=== PATIENT | male | born 1945 | race Hispanic/Latino ===

== ENCOUNTER 2019-01-19 16:19 | Inpatient (IN) | payer MEDICARE ==
[2019-01-19] MEDS ORDERED: Ondansetron PF 4 MG/2 ML Vial ONE (16:43)
[2019-01-19 17:02] LABS: #Lymphocytes 0.5 thou/uL (1.20-3.40); #Monocytes 0.4 thou/uL (0.11-0.59); #Neutrophils 7.5 thou/uL (1.40-6.50); %Lymphocytes 6.4 % (21.0-51.0); %Neutrophils 88.5 % (42.0-75.0); Hemoglobin 13.7 g/dL (14.0-18.0); Mean Corpuscular HGB CONC 34.9 g/dL (32.0-36.0); Mean Corpuscular Hemoglobin 30.5 pg (27.0-31.0); Mean Corpuscular Volume 87.4 fL (78.0-98.0); Mean Platelet Volume 9.8 fL (7.4-10.4); Platelet Count 141 thou/uL (130-400); RBC Distribution Width 12.8 % (11.5-14.5); Red Blood Cell (RBC) Count 4.49 mill/uL (4.70-6.10); White Blood Cell (WBC) Count 8.5 thou/uL (4.8-10.8)
[2019-01-19 17:24] LABS: ALT (SGPT) 18 U/L (8-55); AST (SGOT) 14 U/L (5-34); Albumin 3.8 g/dL (3.4-4.8); Alkaline Phosphatase 77 U/L (40-150); Anion Gap 15 mmol/L (10-20); BUN (Urea Nitrogen) 41 mg/dL (8.4-25.7); Calc. Creatinine Clearance 0 mL/min (70-130); Calcium 8.8 mg/dL (7.8-10.44); Carbon Dioxide 20 mmol/L (23-31); Chloride 103 mmol/L (98-107); Estimated GFR-MDRD 22; Globulin 3.1 g/dL (2.4-3.5); Glucose 244 mg/dL (83-110); Lipase Less than 4 U/L (8-78); Potassium 3.8 mmol/L (3.5-5.1); Protein, Total 6.9 g/dL (5.8-8.1); Sodium 134 mmol/L (136-145)
--- NOTE | 2019-01-19 18:13 | RAD ---
7PORTABLE CHEST: History: Central line placement. FINDINGS: Heart size appears borderline in size considering portable technique and suboptimal inspiration. Left subclavian line is present, the catheter tip overlies the superior vena cava. No signs of pneumothor ax. IMPRESSION: Placement of a left subclavian line. No signs of pneumothorax. POS: [facility]
[2019-01-19] MEDS ORDERED: metroNIDAZOLE 500 MG/100 ML BAG ONE (18:38)
[2019-01-19] MEDS ORDERED: Norepinephrine 8 MG/250 ML BAG IVPB PRN (18:41)
[2019-01-19] MEDS ORDERED: Norepinephrine 8 MG in Dextrose 5% in Water 242 ML IVPB PRN ×2 (18:45→22:20)
--- NOTE | 2019-01-19 19:53 | CT ---
CT ABDOMEN AND PELVIS PERFORMED WITHOUT CONTRAST ENHANCEMENT: History: Abdominal pain, nausea, vomiting. No IV contrast was administered due to low GFR. Comparison: None. FINDINGS: The lung bases are clear of any infiltrative process. There are subsegmental atelectatic changes pres ent. The liver, spleen, pancreas and gallbladder regions appear unremarkable given the limitations of a no ncontrast study. Right and left adrenal glands are normal in appearance. Right and left kidneys are not obstructed. No renal calculi. No significant periaortic or mesenteric adenopathy. There is fluid throughout the col on. No signs of obstruction. Findings would indicate a diarrheal state. CT OF PELVIS PERFORMED WITHOUT CONTRAST ENHANCEMENT: The appendix is normal. No adenopathy, mass, or free fluid. Vascular calcifications are seen. IMPRESSION: Fluid throughout the colon suggesting diarrhea. No signs of any colon wall thickening or other findin gs. POS: [facility]
--- NOTE | 2019-01-19 20:15 | PDOC.FPRHP ---
- History of Present Illness Chief Complaint: n/v History of Present Illness: 73yo male with h/o CAD s/p [place] in 2014, IDDMII, HLD, HTN who presents for n/v and diarrhea as well as feeling of "getting very cold." History obtained via translating service via pt and son (Vic). Sxs began last night on trip back from [place], has previous been living in [place] for psat year. Reports 5-6 episodes of non-bloody diarrhea as well as non-bloody, non-billious vomiting x4. Endorses mild nausea and decreased appetite and PO intake. Denies any SOB, cough, congestion, rashes, sores, urinary sxs, or pain of any kind. Nothing seemed to make sx's worse. Reports drinking "serum" which helped some with sx's. Reports being just fine a few days prior with no recent illnesses. Pt denies any known kidney problems and does not know baseline Cr. ED Course: Initially had elevated fever of 100.8 and RR 24. SBP 90s, dropped to 70s, responded initially to 3L ns bolus but dropped back into 70s. Left subclavian central line placed and started on levophed rate of 2cc/hr with stabilization of SBP at 100. Pt was given dose of levofloxicin and flagyl. - Allergies/Adverse Reactions Allergies Allergy/AdvReac Type Severity Reaction Status Date / Time No Known Allergies Allergy Verified 01/19/19 20:23 - Home Medications Medication Instructions Recorded Confirmed Type Atorvastatin Calcium [Lipitor] 20 mg PO DAILY 01/19/19 01/19/19 History Insulin NPH Human Isophane 18 unit SC QPM 01/19/19 01/19/19 History [NovoLIN N] Insulin NPH Human Isophane 20 unit SC QAM 01/19/19 01/19/19 History [NovoLIN N] Losartan Potassium 50 mg PO BID 01/19/19 01/19/19 History Metoprolol Succinate [Toprol XL] 100 mg PO DAILY 01/19/19 01/19/19 History Omeprazole Magnesium 20 mg PO DAILY 01/19/19 01/19/19 History - History PMHx: CAD s/p [place] in 2014 - no stents placed, IDDMII, HLD, HTN PSHx: 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 Social drinker but quit 30 years ago. No illicits. - Review of Systems General: reports: fever/chills, weight/appetite/sleep changes (decreased PO intake and appetite). denies: night sweats, fatigue Eyes: denies: eye pain, vision changes ENT: denies: nasal congestion, rhinorrhea Respiratory: denies: cough, congestion, shortness of breath Cardiovascular: denies: chest pain, palpitation, edema Gastrointestinal: reports: nausea, vomiting, diarrhea. denies: constipation, abdominal pain, GI bleeding Genitourinary: denies: incontinence, dysuria, polyuria Skin: denies: rashes, lesions Musculoskeletal: denies: pain, tenderness, arthritis/arthralgias Neurological: reports: weakness. denies: numbness, seizure Psychological: denies: anxiety, depression - Vital signs BP: 120/64 HR: 90 RR: 18 Tmax: 99.4 Pox: 96% on 2L Wt: 84kg - Physical Exam Constitutional: NAD, awake, alert and oriented, well developed HEENT: normocephalic and atraumatic, PERRLA, EOMI, conjunctiva clear, MMM Neck: supple, trachea midline Chest: no-tender to palpation Heart: RRR, normal S1/S2, no murmurs/rubs/gallops, pulses present (cold LE, no open sores, 2+ pulses BL), no edema Lungs: no respiratory distress, good air movement, no rales/rhonchi, other ( crackles BL lower lung rich) Abdomen: soft, non-tender, bowel sounds present, no masses/distention, other ( [place], McBurneys, and Psoas negative) Musculoskeletal: normal structure, other (5/5 strength throughout) Neurological: no focal deficit, normal sensation Skin: no rash/lesions Heme/Lymphatic: no unusual bruising or bleeding FMR H&P: Results - Labs Result Diagrams: 01/19/19 16:46 01/19/19 16:46 Lab results: WBC 8.5 thou/uL (4.8-10.8) 01/19/19 16:46 Hgb 13.7 g/dL (14.0-18.0) L 01/19/19 16:46 Hct 39.2 % (42.0-52.0) L 01/19/19 16:46 MCV 87.4 fL (78.0-98.0) 01/19/19 16:46 Plt Count 141 thou/uL (130-400) 01/19/19 16:46 Neutrophils % 88.5 % (42.0-75.0) H 01/19/19 16:46 Sodium 134 mmol/L (136-145) L 01/19/19 16:46 Potassium 3.8 mmol/L (3.5-5.1) 01/19/19 16:46 Chloride 103 mmol/L (98-107) 01/19/19 16:46 Carbon Dioxide 20 mmol/L (23-31) L 01/19/19 16:46 BUN 41 mg/dL (8.4-25.7) H 01/19/19 16:46 Creatinine 2.81 mg/dL (0.7-1.3) H 01/19/19 16:46 Glucose 244 mg/dL (83-110) H 01/19/19 16:46 Lactic Acid 2.6 mmol/L (0.5-2.2) H 01/19/19 17:01 Calcium 8.8 mg/dL (7.8-10.44) 01/19/19 16:46 Total Bilirubin 2.0 mg/dL (0.2-1.2) H 01/19/19 16:46 AST 14 U/L (5-34) 01/19/19 16:46 ALT 18 U/L (8-55) 01/19/19 16:46 Alkaline Phosphatase 77 U/L (40-150) 01/19/19 16:46 Creatine Kinase 63 U/L (30-200) 01/19/19 16:46 Serum Total Protein 6.9 g/dL (5.8-8.1) 01/19/19 16:46 Albumin 3.8 g/dL (3.4-4.8) 01/19/19 16:46 Lipase Less than 4 U/L (8-78) L 01/19/19 16:46 - Radiology Interpretation Chest x-ray Status: image reviewed by me, report reviewed by me (Poor quality XR, left subclavian in place. Possible BL pleural effusions, loss of costdiagphragmatic recesses) CT scan - abdomen Status: report reviewed by me (Fluid in colon suggestive of diarrhea, no colon wall thickening, no acute process) FMR H&P: A/P - Problem List (1) Septic shock Current Visit: Yes Status: Acute Code(s): A41.9 - SEPSIS, UNSPECIFIED ORGANISM; R65.21 - SEVERE SEPSIS WITH SEPTIC SHOCK (2) Elevated creatine kinase Current Visit: Yes Status: Acute (3) CAD (coronary artery disease) Current Visit: Yes Status: Acute Code(s): I25.10 - ATHSCL HEART DISEASE OF [place] CORONARY ARTERY W/O ANG PCTRS (4) Lactic acid acidosis Current Visit: Yes Status: Acute Code(s): E87.2 - ACIDOSIS (5) Insulin dependent diabetes mellitus Current Visit: Yes Status: Acute Code(s): E11.9 - TYPE 2 DIABETES MELLITUS WITHOUT COMPLICATIONS; Z79.4 - REMANUFACTURING TECHNICIAN (CURRENT) USE OF INSULIN - Plan 73yo male with h/o CAD s/p TX in 2014, IDDMII, HLD, HTN who presents for n/v and diarrhea found to be in septic shock. #Septic shock 2/2 unknown source - Initial temp to 100.8, tachypnia, hypotensive requiring levophed - admit to CCU, continue pressor support and IVF of LR @ 125cc/hr - Will obtain UA and UCx, BCx pending - Given levoquin and flagy in ED, will switch to Vanc and Zosyn - Procal pending - Stool studies ordered - repeat CXR 2v in AM 2/2 poor study - RUQ US in AM #Hyperbili - PE WNL, negative osorio's sign, no elevated liver enzymes other than bili - RUQ US pending # ARABELLA vs CKD - Cr 2.81, unknown baseline - IVF of LR @ 125cc/hr - Will trend - checking Mg and Phos, will replace per protocol if needed # Lactic Acidosis - likely 2/2 #1, will trend per sepsis # h/o CAD s/p [place] in 2014 - BNP pending, crackles on lung exam, no lower ext edema - repeat CXR in AM - monitor fluid status, consider ECHO in AM #IDDMII - on NPH 20u QPM and 18uQAM, will hold - mild SS insulin, ACHS accuchecks, hyperglycemia protocol, will monitor - will check A1C # HTN - hold home BP meds at this time #HLD - continue home lipitor - will check Lipid panel VTE: Lovenox renally dosed Diet: Clears to adv as conner Code: Full Disposition/LOS: Admit to CCU for pressor support, sepsis workup pending, monitor clinical status. Anticipate hospitalization 3-5 days. FMR H&P: Upper Level - Pertinent history I was present with the internet technology manager when he obtained the above HPI. I scribed the above document. I made edits as I saw were needed. Agree with above. - Pertinent findings Pt appears to be somewhat weak and ill. Pt extremities cool to the touch. Lungs: Crackles noted bilaterally. Somewhat difficult to auscultate Abdomen: NTTP, no masses or hernias. Osorio and Mcburney's negative. Psoas sign negative. - Plan Date/Time: 01/19/192012 I, Carroll Hanson PGY-3, have evaluated this patient and agree with findings/plan as outlined by internet technology manager resident. Pertinent changes/additions are listed here. Pt having 2 day history of N/V/D and chills. Came in and was found to have RR of 24 and fever of 100.8. Pt BP down in 70's after 3L bolus. Will admit for Septic Shock 2/2 Unknown Source (suspect GI). Pt on levophed at rate of 1. Will continue to titrate as needed. Will start broad spectrum abx, Vanc and Zosyn. Will obtain blood and urine cx. Awaiting UA. Bili elevated. WIll get RUQ sono. Will get stool studies. Will start on LR@125. Cr elevated with unknown baseline. Will trend with BMP. Will renally dose medications. Glucose elevated with no hx of diabetes. Will check A1c. Agree with plan above. Addendum - Attending - Attending Attestation Date/Time: 01/20/19 0021 I personally evaluated the patient and discussed the management with Dr. Luis Armando Massey on 01/19/2019 I agree with the History, Examination, Assessment and Plan documented above with any addition or exceptions noted below - 73yo male with h/o CAD, h /o TX in 2014, Type 2 DM, HLD, HTN who presents for n/v and diarrhea Sxs began last night on trip back from [place], has previous been living in [place] for psat year. Reports 5-6 episodes of non-bloody diarrhea as well as non-bloody, non-billious vomiting x4. Reports feeling cold, having chills and decreased appetite and PO intake. Denies any SOB, cough, congestion, rashes, sores, urinary sxs, or pain of any kind. PMH/PSH/Meds/SH reviewed and agree with resident's documentation. T 100.7 P102 BP 98/72 Exam repeated by me and agree with resident's findings. Labs: WBC=8.5, H/H=13./739.2, Cal=664, Yp=653, K=3.8, Xr=182, CO2=20, BUN/Cr=41/2.81, Laen=529, t bili=2.0, AST/ALT=14/18, lactic acid =2.6 -> 2.1. CT abd/pelvis- fluid throughout colon suggesting diarrhea; no masses or adenopathy. A/P: 1) Septic shock secondary to infectious diarrhea - received 3 L NS in ER and started on levophed due to continued hypotension. Started on levaquin and flagyl in ER. Continue abx. Blood cultures drawn but will also send stool studies, U/A and culture. 2) ARABELLA versus CKD- no h/o kidney disease per patient suspect ARABELLA secondary to GI losses/dehydration- continue IVF and recheck in AM. 3) Type 2 DM- hold home insulin and use sliding scale for now. 4) HTN- hold home meds; resume when BP stabilizes if needed.
[2019-01-19 20:59] LABS: Lactic Acid 2.1 mmol/L (0.5-2.2)
[2019-01-19] MEDS ORDERED: Ondansetron PF 4 MG/2 ML Vial IVP PRN (22:10)
[2019-01-19] MEDS ORDERED: Dextrose 5% in Water 1,000 ML IV PRN (22:10)
[2019-01-19] MEDS ORDERED: Acetaminophen 650 MG Suppository PR PRN (22:10)
[2019-01-19] MEDS ORDERED: Norepinephrine 8 MG/0.9% NS 250 ML IVPB PRN (22:10)
[2019-01-19] MEDS ORDERED: CCU Electrolyte Replacement 1 EACH IVPB ONE (22:10)
[2019-01-19] MEDS ORDERED: Dextrose 50% Abboject 50 ML SYRINGE SLOW IVP PRN (22:10)
[2019-01-19] MEDS ORDERED: Calcium Carbonate 500 MG ChewTAB PO PRN (22:10)
[2019-01-19] MEDS ORDERED: CCU ELECTROLYTE REPLACEMENT PROTOCOL FS PRN (22:18)
[2019-01-19] MEDS ORDERED: Potassium Chloride 40 MEQ in Premix Bag 1 BAG IVPB PRN (22:18)
[2019-01-19] MEDS ORDERED: Magnesium Oxide 400 MG TAB PO PRN ×2 (22:18)
[2019-01-19] MEDS ORDERED: Potassium Phosphate 15 MMOL in Sodium Chloride 0.9% 250 ML 250 ML IV PRN (22:18)
[2019-01-19] MEDS ORDERED: PHOS-NAK 1 PKT PACK PO PRN ×2 (22:18)
[2019-01-19] MEDS ORDERED: Potassium Chloride 20 MEQ TAB PO PRN (22:18)
[2019-01-19] MEDS ORDERED: Potassium Phosphate 9 MMOL in Sodium Chloride 0.9% 100 ML IVPB PRN (22:18)
[2019-01-19] MEDS ORDERED: Potassium Phosphate 12 MMOL in Sodium Chloride 0.9% 250 ML 250 ML IV PRN (22:18)
[2019-01-19] MEDS ORDERED: Potassium Chloride 40 MEQ in Sodium Chloride 0.9% 250 ML 250 ML IVPB PRN (22:18)
[2019-01-19] MEDS ORDERED: Magnesium 2 GM/50 ML 2 GM in Premix Bag 1 BAG IVPB PRN (22:18)
[2019-01-19] MEDS ORDERED: Enoxaparin Sodium 30 MG/0.3 ML SYRINGE SC SCH (22:30)
[2019-01-19] MEDS ORDERED: Piperacillin/Tazobactam 2.25 GM in Sodium Chloride 0.9% 100 ML IVPB SCH (22:30)
[2019-01-19 22:45] LABS: Hemoglobin A1c 7.6 % (4.0-6.0)
[2019-01-19 22:54] LABS: Phosphorus 2.9 mg/dL (2.3-4.7)
[2019-01-19 23:01] LABS: Troponin I 0.047 ng/mL (< 0.028)
[2019-01-19 23:14] LABS: Thyroid Stimulating Hormone 0.5999 uIU/mL (0.35-4.94)
[2019-01-19] MEDS: Lactated Ringer's 1,000 ML IV SCH (23:18)
[2019-01-19 23:52] LABS: Bilirubin Negative (Negative); Blood, Urine 1+ (Negative); Clarity Clear (Clear); Glucose, Urine (Dipstick) 70 mg/dL (Negative); Leukocyte Negative Leu/uL (Negative); Nitrite Negative (Negative); Protein, Urine (Dipstick) 100 mg/dL (Neg-Trace); Squamous Epithelial 0-3 HPF (0-3); Urobilinogen Normal mg/dL (Less than 2); WBC/HPF 0-3 HPF (0-3)
[2019-01-19 23:54] LABS: Bacteria/HPF 1+ HPF (None Seen)
[2019-01-20] MEDS: Acetaminophen 325 MG/10.15 ML UDCUP PO PRN ×2 (00:04→06:15)
[2019-01-20 02:03] LABS: Troponin I 0.046 ng/mL (< 0.028)
[2019-01-20 04:24] LABS: ALT (SGPT) 19 U/L (8-55); AST (SGOT) 19 U/L (5-34); Albumin 3.2 g/dL (3.4-4.8); Alkaline Phosphatase 58 U/L (40-150); Anion Gap 14 mmol/L (10-20); BUN (Urea Nitrogen) 37 mg/dL (8.4-25.7); Bilirubin, Total 1.5 mg/dL (0.2-1.2); Calc. Creatinine Clearance 44 mL/min (70-130); Calcium 7.6 mg/dL (7.8-10.44); Carbon Dioxide 17 mmol/L (23-31); Cardiac Risk 3.2 (Less than 4.5); Chloride 110 mmol/L (98-107); Cholesterol 71 mg/dl (< 200 Desired); Estimated GFR-MDRD 35; Globulin 2.7 g/dL (2.4-3.5); Glucose 157 mg/dL (83-110); HDL Cholesterol 22 mg/dL (>60 Neg Risk); LDL Cholesterol, Calculated 27 mg/dL; Protein, Total 5.9 g/dL (5.8-8.1); Sodium 138 mmol/L (136-145); Triglycerides 108 mg/dL (Less than 150)
[2019-01-20] MEDS ORDERED: Piperacillin/Tazobactam 2.25 GM in Sodium Chloride 0.9% 100 ML IVPB SCH (06:00)
[2019-01-20] MEDS ORDERED: metroNIDAZOLE 500 MG in Premix Bag 1 BAG IVPB SCH (06:00)
[2019-01-20 06:05] LABS: Band 39 % (5-11); Hemoglobin 12.4 g/dL (14.0-18.0); Lymphocytes 9 % (21-51); MDiff Complete? YES; Mean Corpuscular HGB CONC 35.3 g/dL (32.0-36.0); Mean Corpuscular Hemoglobin 30.6 pg (27.0-31.0); Mean Corpuscular Volume 86.8 fL (78.0-98.0); Mean Platelet Volume 10.3 fL (7.4-10.4); Monocytes 7 % (0-10); Neutrophil 45 % (42-75); Platelet Count 92 thou/uL (130-400); Platelet Morphology Comment Appears Decreased; RBC Distribution Width 12.6 % (11.5-14.5); Red Blood Cell (RBC) Count 4.04 mill/uL (4.70-6.10); White Blood Cell (WBC) Count 5.2 thou/uL (4.8-10.8)
[2019-01-20] MEDS ORDERED: Prevnar 13-Val Conj/PF 0.5 ML SYRINGE IM ONE (09:00)
[2019-01-20] MEDS: Lactated Ringer's 1,000 ML IV SCH ×3 (09:31→21:40)
[2019-01-20] MEDS: Loperamide HCl 2 MG CAP PO PRN ×5 (09:40→17:24)
[2019-01-20] MEDS: Atorvastatin Calcium 20 MG TAB PO SCH (09:40)
--- NOTE | 2019-01-20 11:05 | ULT ---
RIGHT UPPER QUADRANT ULTRASOUND: INDICATIONS: Abdominal pain. FINDINGS: The gallbladder is not visualized for comment. There is no focal hepatic lesion. There is limited v isualization of the right upper quadrant due to patient body habitus with decreasing acoustic penetra tion. Osorio sign is reported as negative by the street cleaner. Imaged common duct is within normal l imits in size. IMPRESSION: Technically limited examination. Nonvisualization of the gallbladder. There remains extensive shado wing of this region. The street cleaner does report a negative Osorio sign. Correlate clinically. POS: [facility]
--- NOTE | 2019-01-20 11:27 | RAD ---
PORTABLE CHEST: Date: 01/20/19 HISTORY: Crackles on exam, bilateral pleural effusions. COMPARISON: 01/19/19. FINDINGS: Heart size appears slightly enlarged. Left-sided subclavian line is again noted. The lungs are clear of any infiltrative process. No definite signs of effusions. IMPRESSION: Mild cardiomegaly. No acute infiltrative process. Suggestion of perhaps some minimal subsegmental ate lectasis in the lung bases. Film is of less than optimal inspiration. POS: [facility]
[2019-01-20] MEDS ORDERED: Potassium Chloride 20 MEQ TAB PO SCH (11:30)
--- NOTE | 2019-01-20 11:56 | CON ---
DATE OF CONSULTATION: HISTORY OF PRESENT ILLNESS: Marcos Eastman is a 73-year-old gentleman, who speaks no Swedish. His son is at the bedside, who translated. His Swedish is also relatively poor, but it appears he presented with 24 to 48 hours of nausea, vomiting, and profuse diarrhea following a trip to [place]. There is no blood in the stool. He was when he came in, though his blood pressure is 86/49, pulse 92, his saturations are 96% on room air, and respirations 18. He was given some IV fluid hydration to which he is feeling better. His blood pressure is 106/47, though he is still having some stools. PAST MEDICAL HISTORY: Pertinent for diabetes, hyperlipidemia, hypertension, and coronary artery disease. PAST SURGICAL HISTORY: None. SOCIAL HISTORY: Smoker one time. No substance abuse. HOME MEDICATIONS: Include; 1. Insulin 20 units in the morning, 80 units at nighttime. 2. Omeprazole 20. 3. Metoprolol XL 100. 4. Losartan 50. 5. Lipitor 20. ALLERGIES: NONE. FAMILY HISTORY: Unremarkable. REVIEW OF SYSTEMS: Ten-point negative. PHYSICAL EXAMINATION: VITAL SIGNS: His saturations are 100% on room air, pulse 92, respirations 18, and blood pressure 100/60. GENERAL: He is in no distress. CHEST: No wheezing or crackles. CARDIAC: Normal S1 and S2. No gallops. ABDOMEN: No masses. LABORATORY DATA: White count 5000, H and H of 12 and 35, and platelet count is 92,000, yesterday it was 141,000. LABORATORY DATA: Creatinine 1.8, yesterday it was 2.8. Hemoglobin A1c 7.6. Lactic acid is normal. BNP is normal. stool and blood cultures are negative. IMPRESSION: 1. Gastroenteritis, etiology unclear. 2. Hypertension, dehydration. 3. Azotemia. 4. Diabetes. PLAN: I agree with aggressive hydration. Concern about his thrombocytopenia as possibly this could be septic. Serial exam. We will follow while in the ICU. Consultation note, 70 minutes, 50% direct patient care. Job ID: [id number]
--- NOTE | 2019-01-20 12:52 | PDOC.FM ---
- Subjective Subjective: Pt reports feeling improved, continued nausea, no vomiting. No new complaints since admission. Reports he is hungry. - Objective Vital Signs & Weight: Vital Signs (12 hours) Temp Pulse Pulse BP BP Pulse Ox Pulse Ox 01/20/19 11:15 95 94 112/51 L 118/60 98 01/20/19 11:00 98.1 F 01/20/19 07:46 100 01/20/19 07:37 98 01/20/19 07:00 98.3 F 01/20/19 06:00 101.3 F H 01/20/19 02:00 100.4 F H Pulse Ox 01/20/19 11:15 99 01/20/19 11:00 01/20/19 07:46 01/20/19 07:37 01/20/19 07:00 01/20/19 06:00 01/20/19 02:00 Weight Weight 90.9 kg Most Recent Monitor Data Heart Rate from ECG 98 NIBP 112/51 NIBP BP-Mean 71 Respiration from ECG 15 SpO2 100 I&O: 01/19/19 01/20/19 01/21/19 06:59 06:59 06:59 Intake Total 1368.9 90 Output Total 1300 700 Balance 68.9 -610 Result Diagrams: 01/20/19 03:30 01/20/19 03:30 Phys Exam - Physical Examination Constitutional: NAD HEENT: moist MMs, sclera anicteric Neck: no nodes, supple Respiratory: no wheezing, clear to auscultation bilateral Cardiovascular: RRR, no significant murmur Gastrointestinal: soft, non-tender, no distention, positive bowel sounds Musculoskeletal: no edema, pulses present Neurological: normal sensation, moves all 4 limbs Psychiatric: normal affect Skin: no rash, normal turgor Dx/Plan (1) Septic shock Code(s): A41.9 - SEPSIS, UNSPECIFIED ORGANISM; R65.21 - SEVERE SEPSIS WITH SEPTIC SHOCK Status: Acute (2) Viral gastroenteritis Code(s): A08.4 - VIRAL INTESTINAL INFECTION, UNSPECIFIED Status: Acute (3) CAD (coronary artery disease) Code(s): I25.10 - ATHSCL HEART DISEASE OF [place] CORONARY ARTERY W/O ANG PCTRS Status: Acute (4) Elevated creatine kinase Status: Acute (5) Insulin dependent diabetes mellitus Code(s): E11.9 - TYPE 2 DIABETES MELLITUS WITHOUT COMPLICATIONS; Z79.4 - FDC (CURRENT) USE OF INSULIN Status: Acute (6) Lactic acid acidosis Code(s): E87.2 - ACIDOSIS Status: Acute - Plan Plan: Septic shock 2/2 viral gastroenteritis A- pt feels improved with ABX, stool studies are all negative except fecal lactoferrin. pt is s/p receiving doses of levaquin, zosyn, and flagyl P- will continue zosyn alone -f/u BCx and UCx - repeat CXR 2v in AM 2/ poor study is pending -LR at 125ml/hr -pt has been weaned from levophed, he is stable -transfer to telemetry Hyperbili A- PE WNL, negative gerber's sign, no elevated liver enzymes other than bili P- RUQ US pending ARABELLA vs CKD A- Cr 2.81, unknown baseline P- IVF of LR @ 125cc/hr - Will trend Lactic Acidosis - likely 2/2 #1, will trend per sepsis h/o CAD s/p [place] in 2014 A- BNP elevated crackles on lung exam, no lower ext edema P- repeat CXR in AM - monitor fluid status, ECHO today IDDMII - on NPH 20u QPM and 18uQAM, will hold untill tolerating better PO intake - mild SS insulin, ACHS accuchecks, hyperglycemia protocol, will monitor HTN - hold home BP meds at this time HLD - continue home lipitor - will check Lipid panel hypomagnesemia -replace and monitor as needed hypokalemia -replace and monitor as needed VTE: Lovenox renally dosed Code: Full Addendum - Attending - Attending Attestation Date/Time: 01/20/192041 I personally evaluated the patient and discussed the management with Dr. Lugo at 10 am I agree with the History, Examination, Assessment and Plan documented above with any addition or exceptions noted below. Septic shock from gastroenteritis- off levophed and bp stable. ok to transfer to tele Dehydration- s/p IVF resuscitation- continue IVF Blood cx 2/2 positive for gram neg rods- on zosyn. Continue Thrombocytopenia- possible secondary to sepsis- trend ARABELLA- improving- continue to trend hypokalemia- replace mild metabolic acidosis- IVF and trend. Elevated bnp- check ECHO- monitor fluid status. No hx of CHF.
[2019-01-20] MEDS: Piperacillin/Tazobactam 2.25 GM in Sodium Chloride 0.9% 100 ML IVPB SCH ×2 (13:44→21:40)
[2019-01-20] MEDS: HumaLOG 300 UNITS/3 ML VIAL SC PRN ×2 (17:24→21:40)
[2019-01-20] MEDS ORDERED: Enoxaparin Sodium 30 MG/0.3 ML SYRINGE SC SCH (21:00)
[2019-01-20] MEDS ORDERED: Vancomycin HCl 1.25 GM in Sodium Chloride 0.9% 250 ML 300 ML IVPB SCH (22:00)
[2019-01-21] MEDS: Loperamide HCl 2 MG CAP PO PRN ×4 (01:36→11:48)
[2019-01-21 05:24] LABS: Band 62 % (5-11); Eosinophils 1 % (0-10); Hemoglobin 10.9 g/dL (14.0-18.0); Lymphocytes 9 % (21-51); MDiff Complete? YES; Mean Corpuscular HGB CONC 35.1 g/dL (32.0-36.0); Mean Corpuscular Hemoglobin 30.9 pg (27.0-31.0); Mean Corpuscular Volume 88.1 fL (78.0-98.0); Mean Platelet Volume 10.5 fL (7.4-10.4); Monocytes 5 % (0-10); Neutrophil 21 % (42-75); Platelet Count 91 thou/uL (130-400); Platelet Morphology Comment Appears Decreased; RBC Distribution Width 12.6 % (11.5-14.5); Reactive Lymphocytes 1 % (0-10); Red Blood Cell (RBC) Count 3.54 mill/uL (4.70-6.10); White Blood Cell (WBC) Count 4.5 thou/uL (4.8-10.8)
[2019-01-21] MEDS: Piperacillin/Tazobactam 2.25 GM in Sodium Chloride 0.9% 100 ML IVPB SCH ×3 (05:41→21:49)
[2019-01-21] MEDS: Lactated Ringer's 1,000 ML IV SCH ×4 (05:43→23:36)
[2019-01-21 05:51] LABS: ALT (SGPT) 29 U/L (8-55); AST (SGOT) 39 U/L (5-34); Albumin 2.9 g/dL (3.4-4.8); Alkaline Phosphatase 50 U/L (40-150); Anion Gap 12 mmol/L (10-20); BUN (Urea Nitrogen) 30 mg/dL (8.4-25.7); Bilirubin, Total 1.2 mg/dL (0.2-1.2); Calc. Creatinine Clearance 50 mL/min (70-130); Calcium 7.9 mg/dL (7.8-10.44); Carbon Dioxide 19 mmol/L (23-31); Chloride 112 mmol/L (98-107); Estimated GFR-MDRD 41; Globulin 2.7 g/dL (2.4-3.5); Glucose 134 mg/dL (83-110); Magnesium 1.7 mg/dL (1.6-2.6); Potassium 3.3 mmol/L (3.5-5.1); Protein, Total 5.6 g/dL (5.8-8.1); Sodium 140 mmol/L (136-145)
--- NOTE | 2019-01-21 06:37 | PDOC.FM ---
- Subjective Subjective: reports some continued diarrhea overnight but no other issues or problems. No fever/chills, no nausea/vomiting - Objective Vital Signs & Weight: Vital Signs (12 hours) Temp Pulse Ox 01/21/19 04:00 98.4 F 01/21/19 00:00 98.6 F 01/20/19 19:24 100 01/20/19 19:00 97.3 F L 01/20/19 18:50 98 Weight Admit Weight 90.718 kg Weight 90.1 kg Most Recent Monitor Data Heart Rate from ECG 79 NIBP 134/65 NIBP BP-Mean 88 Respiration from ECG 19 SpO2 100 I&O: 01/19/19 01/20/19 01/21/19 06:59 06:59 06:59 Intake Total 1368.9 3214 Output Total 1300 2520 Balance 68.9 694 Result Diagrams: 01/21/19 04:05 01/21/19 04:05 Phys Exam - Physical Examination Constitutional: NAD HEENT: moist MMs, sclera anicteric Neck: no JVD, supple Respiratory: no wheezing, clear to auscultation bilateral Cardiovascular: RRR, no significant murmur Gastrointestinal: soft, non-tender, no distention, positive bowel sounds Musculoskeletal: pulses present Neurological: normal sensation, moves all 4 limbs Psychiatric: normal affect, A&O x 3 Skin: no rash, normal turgor Dx/Plan (1) Septic shock Code(s): A41.9 - SEPSIS, UNSPECIFIED ORGANISM; R65.21 - SEVERE SEPSIS WITH SEPTIC SHOCK Status: Acute (2) Viral gastroenteritis Code(s): A08.4 - VIRAL INTESTINAL INFECTION, UNSPECIFIED Status: Acute (3) CAD (coronary artery disease) Code(s): I25.10 - ATHSCL HEART DISEASE OF [place] CORONARY ARTERY W/O ANG PCTRS Status: Acute (4) Elevated creatine kinase Status: Acute (5) Insulin dependent diabetes mellitus Code(s): E11.9 - TYPE 2 DIABETES MELLITUS WITHOUT COMPLICATIONS; Z79.4 - GALLERY OR MUSEUM ATTENDANT (CURRENT) USE OF INSULIN Status: Acute (6) Lactic acid acidosis Code(s): E87.2 - ACIDOSIS Status: Acute - Plan Plan: Septic shock 2/2 viral gastroenteritis A- pt feels improved with ABX, stool studies are all negative except fecal lactoferrin. pt is s/p receiving doses of levaquin, zosyn, and flagyl. BCx show 2/2 gm negative rods- contaminate vs. bacteremia. repeat CXR was unremarkable P- will continue zosyn - f/u BCx speciation - LR at 125ml/hr - pt has been weaned from levophed, he is stable - transfer to telemetry Hyperbili, resolved A- PE WNL, negative gerber's sign, no elevated liver enzymes other than bili which is now wnl. was difficult study but did show negative gerber sign P- f/u outpt for repeat US ARABELLA vs CKD A- Cr 2.81 -> 2.6, unknown baseline P- IVF of LR @ 125cc/hr - Will trend h/o CAD s/p MD in 2014 A- BNP elevated crackles on lung exam, no lower ext edema P- monitor fluid status, ECHO today IDDMII - on NPH 20u QPM and 18uQAM, will hold until tolerating better PO intake - mild SS insulin, ACHS accuchecks, hyperglycemia protocol, will monitor HTN - hold home BP meds at this time HLD - continue home lipitor hypomagnesemia -replace and monitor as needed hypokalemia -replace and monitor as needed VTE: Lovenox renally dosed Code: Full Addendum - Attending - Attending Attestation Date/Time: 01/21/19 1720 I personally evaluated the patient and discussed the management with Dr. Lugo. I agree with the History, Examination, Assessment and Plan documented above with any addition or exceptions noted below. Septic shock from gastroenteritis-improving clinically. Bandemia worsened but afebrile. Continue IVF resuscitation. Gram negative bacteremia- awaiting speciation and sensitivities. Continue zosyn for now as afebrile and clinically improving ARABELLA, prerenal- improving. Continue daily trends. Ok to move to medical floor.
[2019-01-21] MEDS ORDERED: Potassium Chloride 20 MEQ TAB PO SCH (06:45)
--- NOTE | 2019-01-21 08:53 | PRG ---
DATE OF SERVICE: 01/21/2019 SUBJECTIVE: This morning, he is awake, alert, responsive, and less diarrhea, but still persistent. OBJECTIVE: VITAL SIGNS: Temperature 98, blood pressure 140/70, saturations 90%, respiratory rate 18. No pain. No discomfort. CHEST: No wheezing or crackles. CARDIAC: Normal S1 and S2. No gallops. ABDOMEN: No mass. LABORATORY DATA: Creatinine is 1.66, much improved. Lytes are normal. White count 10,000. Blood culture, gram-negative rods. IMPRESSION: 1. Gastroenteritis, etiology unclear. 2. Gram-negative sepsis. 3. Azotemia. 4. Diabetes. PLAN: Await cultures. Before we make any change to the antibiotics, he can be transferred to a monitored bed. Continue PT and supportive care. Job ID: [id number]
[2019-01-21] MEDS: Atorvastatin Calcium 20 MG TAB PO SCH (09:14)
[2019-01-21] MEDS: HumaLOG 300 UNITS/3 ML VIAL SC PRN (17:29)
[2019-01-22] MEDS: Lactated Ringer's 1,000 ML IV SCH (04:02)
[2019-01-22] MEDS: Piperacillin/Tazobactam 2.25 GM in Sodium Chloride 0.9% 100 ML IVPB SCH (05:45)
[2019-01-22 05:53] VITALS: BMI 30.2
[2019-01-22 07:07] LABS: ALT (SGPT) 30 U/L (8-55); AST (SGOT) 39 U/L (5-34); Albumin 2.7 g/dL (3.4-4.8); Alkaline Phosphatase 52 U/L (40-150); Anion Gap 9 mmol/L (10-20); BUN (Urea Nitrogen) 14 mg/dL (8.4-25.7); Bilirubin, Total 1.2 mg/dL (0.2-1.2); Calc. Creatinine Clearance 80 mL/min (70-130); Calcium 7.7 mg/dL (7.8-10.44); Carbon Dioxide 19 mmol/L (23-31); Chloride 111 mmol/L (98-107); Estimated GFR-MDRD 70; Globulin 2.4 g/dL (2.4-3.5); Glucose 131 mg/dL (83-110); Potassium 3.1 mmol/L (3.5-5.1); Protein, Total 5.1 g/dL (5.8-8.1); Sodium 136 mmol/L (136-145)
[2019-01-22 08:38] LABS: Band 22 % (5-11); Eosinophils 4 % (0-10); Hemoglobin 10.9 g/dL (14.0-18.0); Lymphocytes 19 % (21-51); MDiff Complete? YES; Mean Corpuscular HGB CONC 35.9 g/dL (32.0-36.0); Mean Corpuscular Volume 86.2 fL (78.0-98.0); Mean Platelet Volume 9.5 fL (7.4-10.4); Monocytes 9 % (0-10); Neutrophil 46 % (42-75); Platelet Count 93 thou/uL (130-400); Platelet Morphology Comment Appears Decreased; Polychromasia SLIGHT = 2-3 cells (100X) (0-2/hpf); RBC Distribution Width 12.2 % (11.5-14.5); Red Blood Cell (RBC) Count 3.52 mill/uL (4.70-6.10); White Blood Cell (WBC) Count 5.1 thou/uL (4.8-10.8)
[2019-01-22] MEDS: Atorvastatin Calcium 20 MG TAB PO SCH (08:40)
--- NOTE | 2019-01-22 09:20 | PDOC.FM ---
- Subjective Subjective: Pt reports feeling well overnight. 2BMs that were not diarrhea. no nausea/ vomiting. Denies fevers/chills - Objective Vital Signs & Weight: Vital Signs (12 hours) Temp Pulse Resp BP BP Pulse Ox 01/22/19 07:29 96.0 F L 80 16 155/72 H 95 01/22/19 04:54 98.6 F 74 20 139/69 95 01/21/19 23:32 98.6 F 67 20 130/69 92 L Weight Admit Weight 90.718 kg Weight 90.673 kg Most Recent Monitor Data Heart Rate from ECG 79 NIBP 155/78 NIBP BP-Mean 103 Respiration from ECG 15 SpO2 97 I&O: 01/21/19 01/22/19 01/23/19 06:59 06:59 06:59 Intake Total 3214 2540 Output Total 2520 200 Balance 694 2340 Result Diagrams: 01/22/19 06:15 01/22/19 06:15 Phys Exam - Physical Examination Constitutional: NAD HEENT: moist MMs, sclera anicteric Respiratory: no wheezing, clear to auscultation bilateral Cardiovascular: RRR, no significant murmur Gastrointestinal: soft, non-tender, positive bowel sounds Musculoskeletal: no edema, pulses present Neurological: normal sensation, moves all 4 limbs Psychiatric: normal affect Skin: no rash, normal turgor Dx/Plan (1) Septic shock Code(s): A41.9 - SEPSIS, UNSPECIFIED ORGANISM; R65.21 - SEVERE SEPSIS WITH SEPTIC SHOCK Status: Acute (2) Viral gastroenteritis Code(s): A08.4 - VIRAL INTESTINAL INFECTION, UNSPECIFIED Status: Acute (3) CAD (coronary artery disease) Code(s): I25.10 - ATHSCL HEART DISEASE OF [place] CORONARY ARTERY W/O ANG PCTRS Status: Acute (4) Elevated creatine kinase Status: Acute (5) Insulin dependent diabetes mellitus Code(s): E11.9 - TYPE 2 DIABETES MELLITUS WITHOUT COMPLICATIONS; Z79.4 - USP (CURRENT) USE OF INSULIN Status: Acute (6) Lactic acid acidosis Code(s): E87.2 - ACIDOSIS Status: Acute - Plan Plan: Septic shock 2/2 Salmonella group B bacteremia A- BCx showing 2/2 group B salmonella group B bacteremia. Stool Cx still unremarkable. Pt seems to be improved since starting ABX though and is stable. P- transition to PO bactrim -f/u on stool Cx -DC IVF and f/u on PO intake, possible DC today vs. tomorrow Hyperbili, resolved A- PE WNL, negative gerber's sign, no elevated liver enzymes other than bili which is now wnl. was difficult study but did show negative gerber sign P- f/u outpt for repeat US ARABELLA A- resolved. P- encourage PO intake h/o CAD s/p CT in 2014 A- BNP elevated crackles on lung exam, no lower ext edema P- monitor fluid status, ECHO today IDDMII - on NPH 20u QPM and 18uQAM, will hold until BG increases - mild SS insulin, ACHS accuchecks, hyperglycemia protocol, will monitor HTN - home meds HLD - continue home lipitor hypomagnesemia -replace and monitor as needed hypokalemia -replace and monitor as needed VTE: Lovenox renally dosed Code: Full Addendum - Attending - Attending Attestation Date/Time: 01/22/19 3289 I personally evaluated the patient and discussed the management with Dr. Lugo I agree with the History, Examination, Assessment and Plan documented above with any addition or exceptions noted below. Salmonella bacteremia and gastroenteritis- on IV Zosyn and improved significantly. Will touch base with Dr. Mohamud on length of treatment with either oral ampicillin or bactrim. D/c IVF and watch today. Expect d/c tomorrow if tolerates oral medication.
--- NOTE | 2019-01-22 09:36 | PRG ---
DATE OF SERVICE: 01/22/2019 SUBJECTIVE: Awake, alert, responsive. Better. Less diarrhea. Less short of breath. OBJECTIVE: VITAL SIGNS: Temperature 98.6, pulse 80, respiratory rate 16, saturations are 95% room air, blood pressure 150/72. CHEST: No wheezing, crackles. CARDIAC: Normal S1, S2. No gallops. ABDOMEN: No masses. ASSESSMENT: 1. Salmonella sepsis, sensitive to ampicillin. 2. Azotemia, resolved. 3. Diabetes. PLAN: I would switch him over to oral ampicillin. Home any time. Pulmonary will follow at a distance. Job ID: [id number]
[2019-01-22] MEDS ORDERED: Sulfameth/Trimethoprim DS 800-160mg TAB PO SCH (10:15)
[2019-01-22] MEDS ORDERED: Potassium Chloride 20 MEQ TAB PO SCH (14:30)
[2019-01-22] MEDS: Sulfameth/Trimethoprim DS 800-160mg TAB PO SCH (20:54)
[2019-01-22] MEDS: Losartan 25 MG TAB PO SCH (20:54)
[2019-01-23 05:54] LABS: ALT (SGPT) 33 U/L (8-55); AST (SGOT) 39 U/L (5-34); Albumin 2.8 g/dL (3.4-4.8); Alkaline Phosphatase 56 U/L (40-150); Anion Gap 10 mmol/L (10-20); BUN (Urea Nitrogen) 10 mg/dL (8.4-25.7); Calc. Creatinine Clearance 90 mL/min (70-130); Calcium 7.8 mg/dL (7.8-10.44); Carbon Dioxide 22 mmol/L (23-31); Chloride 108 mmol/L (98-107); Estimated GFR-MDRD 80; Globulin 2.5 g/dL (2.4-3.5); Glucose 177 mg/dL (83-110); Potassium 3.3 mmol/L (3.5-5.1); Protein, Total 5.3 g/dL (5.8-8.1); Sodium 137 mmol/L (136-145)
[2019-01-23 06:29] LABS: Mean Corpuscular HGB CONC 36.3 g/dL (32.0-36.0); Mean Corpuscular Hemoglobin 30.9 pg (27.0-31.0); Mean Platelet Volume 9.3 fL (7.4-10.4); Platelet Count 91 thou/uL (130-400); RBC Distribution Width 12.1 % (11.5-14.5); Red Blood Cell (RBC) Count 3.55 mill/uL (4.70-6.10); White Blood Cell (WBC) Count 6.7 thou/uL (4.8-10.8)
[2019-01-23 06:30] LABS: Band 5 % (5-11); Eosinophils 1 % (0-10); Lymphocytes 11 % (21-51); MDiff Complete? YES; Monocytes 10 % (0-10); Neutrophil 73 % (42-75)
--- NOTE | 2019-01-23 06:51 | PDOC.FM ---
- Subjective Subjective: Pt continues to feel well - Objective Vital Signs & Weight: Vital Signs (12 hours) Temp Pulse Resp BP Pulse Ox 01/22/19 20:00 98.0 F 80 18 150/74 H 93 L Weight Admit Weight 90.718 kg Weight 90.673 kg Most Recent Monitor Data Heart Rate from ECG 79 NIBP 155/78 NIBP BP-Mean 103 Respiration from ECG 15 SpO2 97 I&O: 01/21/19 01/22/19 01/23/19 06:59 06:59 06:59 Intake Total 3214 2540 300 Output Total 2520 200 Balance 694 2340 300 Result Diagrams: 01/23/19 05:14 01/23/19 05:14 Dx/Plan (1) Septic shock Code(s): A41.9 - SEPSIS, UNSPECIFIED ORGANISM; R65.21 - SEVERE SEPSIS WITH SEPTIC SHOCK Status: Acute (2) Viral gastroenteritis Code(s): A08.4 - VIRAL INTESTINAL INFECTION, UNSPECIFIED Status: Acute (3) CAD (coronary artery disease) Code(s): I25.10 - ATHSCL HEART DISEASE OF [place] CORONARY ARTERY W/O ANG PCTRS Status: Acute (4) Elevated creatine kinase Status: Acute (5) Insulin dependent diabetes mellitus Code(s): E11.9 - TYPE 2 DIABETES MELLITUS WITHOUT COMPLICATIONS; Z79.4 - HALFWAY (CURRENT) USE OF INSULIN Status: Acute (6) Lactic acid acidosis Code(s): E87.2 - ACIDOSIS Status: Acute - Plan Plan: Septic shock 2/2 Salmonella group B bacteremia and gastroenteritis A- BCx and Stool Cx showing 2/2 group B salmonella group B bacteremia. Pt seems to be improved since starting ABX though and is stable. Transitioned to PO bactrim yesterday per sensitivities and lit review P- continue PO bactrim -DC home today Hyperbili, resolved A- PE WNL, negative gerber's sign, no elevated liver enzymes other than bili which is now wnl. was difficult study but did show negative gerber sign P- f/u outpt for repeat US ARABELLA A- resolved. P- encourage PO intake h/o CAD s/p [place] in 2014 A- BNP elevated crackles on lung exam, no lower ext edema, echo shows EF 50-55% no note of HF P- monitor fluid status IDDMII - restart home NPH HTN - home meds HLD - continue home lipitor hypomagnesemia -replace and monitor as needed hypokalemia -replace and monitor as needed VTE: Lovenox renally dosed Code: Full Addendum - Attending - Attending Attestation Date/Time: 01/23/19 8251 I personally evaluated the patient and discussed the management with Dr. Lugo. I agree with the History, Examination, Assessment and Plan documented above with any addition or exceptions noted below. Patient overall doing well this morning. Denies complaints, tolerating diet well without abdominal pain. Denies other symptoms. He will be discharged today on 10 days of Bactrim for Salmonella bacteremia and septic shock now resolved. Needs follow up outpatient and will work to help set that up.
[2019-01-23] MEDS ORDERED: Potassium Chloride 20 MEQ TAB PO SCH (07:00)
[2019-01-23] MEDS ORDERED: NPH, Human Insulin Isophane 300 UNIT/3 ML VIAL SC SCH ×2 (09:00→21:00)
[2019-01-23] MEDS: Atorvastatin Calcium 20 MG TAB PO SCH (09:44)
[2019-01-23] MEDS: Losartan 25 MG TAB PO SCH (09:44)
[2019-01-23] MEDS: Sulfameth/Trimethoprim DS 800-160mg TAB PO SCH (09:45)
[2019-01-23 11:25] VITALS: BP 148/75; TEMP 98.2
--- NOTE | 2019-01-25 12:00 | EKG ---
Test Reason : ER Blood Pressure : / mmHG Vent. Rate : 088 BPM Atrial Rate : 088 BPM P-R Int : 170 ms QRS Dur : 094 ms QT Int : 352 ms P-R-T Axes : 022 -25 -09 degrees QTc Int : 425 ms Normal sinus rhythm Inferior infarct , age undetermined Abnormal ECG Confirmed by KITTY SCHMIDT, LADONNA ([id number]), restaurant [employer]itor [employer] ([id number]) on 01/25/2019 11:59:37 AM Referred By: Confirmed By:LADONNA TANG MD
== END 2019-01-23 13:14 | disposition home or self-care (01) | DRG 871 ==
LOC: ERS 16:19 → CCU 20:53 → T4-B 01-21 13:35
PROVIDERS: ADMIT Family Medicine; ATTEND Family Medicine
PROC: 3E033XZ Introduction of Vasopressor into Peripheral Vein, Percutaneous Approach (ICD-10-PCS; principal; 2019-01-19)
PROC: 02HV33Z Insertion of Infusion Device into Superior Vena Cava, Percutaneous Approach (ICD-10-PCS; 2019-01-19)
DX: A02.1 Salmonella sepsis (principal); R65.21 Severe sepsis with septic shock; E87.2 Acidosis; N17.9 Acute kidney failure, unspecified; I25.10 Atherosclerotic heart disease of native coronary artery without angina pectoris; E78.5 Hyperlipidemia, unspecified; N18.9 Chronic kidney disease, unspecified; I12.9 Hypertensive chronic kidney disease with stage 1 through stage 4 chronic kidney disease, or unspecified chronic kidney disease; E86.0 Dehydration; A08.4 Viral intestinal infection, unspecified; E80.6 Other disorders of bilirubin metabolism; E11.22 Type 2 diabetes mellitus with diabetic chronic kidney disease; Z79.4 Long term (current) use of insulin; E83.42 Hypomagnesemia; E87.6 Hypokalemia; Z79.899 Other long term (current) drug therapy; Z87.891 Personal history of nicotine dependence; I25.2 Old myocardial infarction; Z89.029 Acquired absence of unspecified finger(s); F17.200 Nicotine dependence, unspecified, uncomplicated; D69.59 Other secondary thrombocytopenia
CPT/HCPCS: 36415; 36416; 36556; 71045; 74176; 76705; 80053; 80061; 81001; 82550; 83036; 83605; 83630; 83690; 83735; 83880; 84100; 84145; 84443; 84484; 85007; 85025; 85027; 87040; 87045; 87046; 87077; 87086; 87149; 87186; 87324; 87328; 87329; 87427; 87449; 90471; 90670; 93005; 93306; 96360; 96361; 96365; 96366; 96367; 96375; G0009; J1650; J1815; J1956; J2405; J2543; J3370; J3475; J3480; J3490; J7050; J7070